=== PATIENT | female | born 1980 | race Caucasian/White ===

== ENCOUNTER 2023-05-04 03:17 | Outpatient (CLI) | payer MEDICAID, SELFPAY ==
[2023-05-04 13:00] LABS: Abs Immature Grans 0.02 10^3/uL (0.0-0.06); Absolute Basophil Count 0.05 10^3/uL (0.0-0.2); Absolute Eosinophil Count 0.23 10^3/uL (0.0-0.7); Absolute Monocyte Count 0.45 10^3/uL (0.1-0.8); Absolute Neutrophil Count 4.82 10^3/uL (1.2-6.7); Basophils % 0.7; Eosinophils % 3.2; HCT 38.7 % (36.0-46.0); Immature Grans % 0.3; Lymphocytes % 23.4; MCHC 33.6 % (32.0-36.0); MCV 86 fL (80-95); MPV 10.8 fL (8.0-11.0); Monocytes % 6.2; Neutrophils % 66.2; Platelet Count 215 10^3/uL (130-400); RBC 4.48 10^6/uL (3.93-5.22); RDW 12.1 % (11.7-14.6); RDW-SD 38.6 fL; WBC 7.27 10^3/uL (4.4-10.8)
[2023-05-04 13:36] LABS: Bilirubin Negative (Negative); Blood Negative (Negative); Clarity Clear (Clear); Glucose Negative (Negative); Ketones Negative (Negative); Leukocyte Esterase Negative (Negative); Nitrite Negative (Negative); Urobilinogen 0.2 mg/dL (Up to 0.2)
[2023-05-04 14:00] LABS: HCG Qual (Serum) Negative
[2023-05-04 14:18] LABS: ALT 33 U/L (14-59); AST 18 U/L (15-37); Alkaline Phosphatase 54 U/L (46-116); BUN 15 mg/dL (7-18); Bilirubin, Total 0.4 mg/dL (0.2-1.0); CREATININE 0.7 mg/dL (0.55-1.02); Calcium 8.8 mg/dL (8.5-10.1); Calculated LDL 117 mg/dL (<100); Chloride 103 mmol/L (98-107); Cholesterol 187 mg/dL (<200); Estimated GFR 109.98 (mL/min/1.73m2); Ferritin 28 ng/mL (8-252); Glucose 97 mg/dL (74-106); HDL Cholesterol 60 mg/dL (40-60); Potassium 3.9 mmol/L (3.5-5.1); Sodium 139 mmol/L (136-145); TSH 2.18 uIU/mL (0.36-3.74); Total Protein 7.8 g/dL (6.4-8.2); Triglyceride 53 mg/dL (<150)
[2023-05-04 15:36] LABS: FREE T4 0.87 ng/dL (0.76-1.46)
[2023-05-04 23:40] LABS: T3,Free 3.5 pg/mL (2.8-5.3)
[2023-05-05 08:22] LABS: FSH 4.7 mIU/mL (See Note); LH 4.2 mIU/mL (See Note); Prolactin 9.3 ng/mL (See Note); Sex Hormone Binding Globulin 38.7 nmol/L (See Note)
[2023-05-06 10:40] LABS: Insulin 9.4 uIU/mL (<29.0)
[2023-05-06 12:36] LABS: Copper, Serum 115 mcg/dL (77-206)
[2023-05-06 17:59] LABS: 25-Hydroxy D Total 35 ng/mL; 25-Hydroxy D2 <4.0 ng/mL; 25-Hydroxy D3 35 ng/mL
[2023-05-10 10:55] LABS: Testosterone, Free 0.42 ng/dL (<0.13-0.98); Testosterone, Total 24 ng/dL (8-60)
== END 2023-05-04 03:18 | disposition home or self-care (01) ==
LOC: LBO 03:17
PROVIDERS: PCP Naturopath; Visit Provider Naturopath
DX: K81.9 Cholecystitis, unspecified (principal); R42 Dizziness and giddiness; D50.9 Iron deficiency anemia, unspecified; E07.9 Disorder of thyroid, unspecified; E55.9 Vitamin D deficiency, unspecified; Z13.220 Encounter for screening for lipoid disorders; Z13.1 Encounter for screening for diabetes mellitus; E64.3 Sequelae of rickets; R35.0 Frequency of micturition; R53.83 Other fatigue; E61.0 Copper deficiency
CPT/HCPCS: 36415; 80053; 80061; 82306; 82525; 84402; 84403; 84410; 81003; 82728; 83001; 83002; 83525; 84146; 84270; 84439; 84443; 84481; 84703; 85025

== ENCOUNTER 2023-06-03 21:02 | Emergency (ER) | payer MEDICAID, SELFPAY ==
[2023-06-03 21:06] VITALS: BP 149/83; PULSE 64; RESP 16; TEMP 36.8; O2SAT 97
--- NOTE | 2023-06-03 21:40 | ED.GENADUL_ITS ---
Discharge Plan Disposition Patient Disposition: Home Condition: Good Discharge Details Clinical Impression: Laceration of hand Primary Care Provider: Derik Marcos ED Provider: Chin Ashton Home Meds and New Rx's Prescriptions: No Action No Known Home Meds Discharge Instructions Instructions: Laceration (ED) Additional Instructions: Suture removal in 7-10 days Discharge Data Discharge Date/Time-TO BE ENTERED AT DEPARTURE: 06/03/23 21:50 Medical Decision Making Simple laceration approximated with no complications. Suture removal in 7 to 10 days. HPI General Date/Time Provider Initiated Documentation: 06/03/23 21:40 . Limitations to Documentation: no limitations . Information obtained by: patient . HPI Narrative: Patient was byron fruit and and sustained a laceration to the left palm. This is because the glass broke. She irrigated the hand with fresh water. Presented to the emergency department. No other injuries. Complains of no numbness tingling distal to the site of injury. Bleeding was controlled with bandage. Related Data Home Medications Medication Instructions Recorded Confirmed Unknown [No Known Home Meds] 06/03/23 06/03/23 Allergies Allergy/AdvReac Type Severity Reaction Status Date / Time Penicillins AdvReac Unknown Other (See Unverified 06/03/23 21:09 Comment) General Stated Complaint: Laceration JEM: 4 Review of Systems Narrative: MUSC: Negative for muscle aches, edema. SKIN: Negative rash, lesions/sores. NEURO: Negative headache, dizziness, weakness. PFSH All Active Problems Laceration of hand (Acute) Social History Smoking/Tobacco Use Status: Never Smoking risk assessment performed?: Yes Alcohol Intake: never Housing: house Do you feel safe at home: Yes Do you feel safe in your relationship?: Yes Exam Narrative Exam Narrative: MUSCLES/EXTREMITIES No abnormal range of motion, no swelling. SKIN Warm, pink and dry. No rashes, dermatoses, petechiae or lesions. 1 cm linear clean laceration to the left palm. NEUROLOGICAL Speech is clear and appropriate. Normal level of consciousness. Gait and coordination are normal. 5/5 strength in all extremities. No sensory deficit Course Vital Signs Vital signs: Vital Signs Temperature 36.8 C 06/03/23 21:06 Pulse 64 06/03/23 21:06 Respiratory Rate 16 06/03/23 21:06 Blood Pressure 149/83 H 06/03/23 21:06 Pulse Oximetry 97 06/03/23 21:06 Temperature 36.8 C 06/03/23 21:06 Temperature Source Oral 06/03/23 21:06 Pulse 64 06/03/23 21:06 Respiratory Rate 16 06/03/23 21:06 Respiratory Effort Normal 06/03/23 21:10 Blood Pressure 149/83 H 06/03/23 21:06 Pulse Oximetry 97 06/03/23 21:06 Oxygen Delivery Method Room Air 06/03/23 21:06 Oxygen Flow Rate 0 06/03/23 21:06 Pain Level 4 06/03/23 21:06 Procedures Laceration Laceration 1: Site: other (Left palm) Size (cm): 1 Description: linear Depth: simple, single layer Local Anesthetic: Lidocaine 1% Amount of anesthesia used (mL): 3 Pre-repair: irrigated extensively and deep structures intact Skin layer closed with: nylon Size (cm): 5-0 Number of sutures: 2 Technique: simple, interrupted
== END 2023-06-03 21:50 | disposition home or self-care (01) ==
PROVIDERS: Emergency Provider Emergency Medicine; PCP Naturopath
DX: S61.412A Laceration without foreign body of left hand, initial encounter (principal); W26.8XXA Contact with other sharp object(s), not elsewhere classified, initial encounter
CPT/HCPCS: 12001

== ENCOUNTER 2023-07-02 00:46 | Outpatient (CLI) | payer MEDICAID, SELFPAY ==
--- NOTE | 2023-07-02 | DI.US_ITS ---
Exam(s) US BREAST LT COMPLETE US BREAST RT COMPLETE MG MAMMO DIAGNOSTIC BI EXAM: MG MAMMO DIAGNOSTIC BI AND BILATERAL COMPLETE BREAST ULTRASOUND CLINICAL HISTORY: N64.3 GALACTORRHEA NOT ASSOCIATED WITH CHILDBIRTH, FAMILY HX, Z80.3. TECHNIQUE: Both CC and MLO mammographic images were obtained with 3D tomosynthesis technique and uti lizing computer aided detection (CAD). We also performed spot compression mammographic views of both breasts. COMPLETE BILATERAL BREAST ULTRASOUND was performed including all 4 quadrants of both breasts, the ret roareolar regions, as well as both axillary regions. COMPARISON: None. This is a baseline mammogram on the this 42-year-old patient who has been having occasional unilateral right breast non bloody discharge. FINDINGS: MAMMOGRAM: In the left breast on the MLO view there is an asymmetric density-possible nodule located 7 cm in fro m the nipple. We performed additional spot compression view and this appears to dissipate this nodul e. This was also negative for significant findings on ultrasound today. There are no malignant-appe aring microcalcification groups in the left breast. No architectural distortion or skin thickening-t raction. In the right breast there are some asymmetric densities retroareolar region. Spot compression view r eveals these to be ducts which appear to be upper normal diameters. There is no truly discernible ma ss and there are no malignant-appearing microcalcification groups. No significant architectural dist ortion or skin thickening-traction. BILATERAL COMPLETE BREAST ULTRASOUND: LEFT BREAST ULTRASOUND: No evidence of solid or significant cystic lesions in all 4 quadrants. Norm al size retroareolar region ducts which are similar in size to the opposite-right side and do not con tain masses nor inspissated material. Scanning of the left axilla is negative for significant adenopathy. RIGHT BREAST ULTRASOUND: No evidence of solid nor significant cystic lesions in all 4 quadrants. In the retroareolar region there are normal size ducts which appears symmetrical when compared to the op posite-left side. There is no mass such as papilloma within the ducts in the ducts appear clear with no inspissated material therein. Scanning of the right axilla is negative for significant adenopathy. IMPRESSION: 1. No radiographic evidence of malignancy. 2. Negative bilateral complete breast ultrasound. Appropriate follow-up is repeat bilateral mammogram in 6 months, with earlier imaging if a self detec connie breast change is noted.. The patient was informed of the findings and follow-up recommendations by myself prior to leaving the department today. BI-RADS Category 3 - 6 month - Probably Benign Finding: Recommend follow-up mammography in 6 months Breast Density - Category B - Scattered areas of fibroglandular density Breast density Category C or D implies that the patient has dense breast tissue. Dense breast tissue can make it harder to find cancer on a mammogram. Dense breast tissue is also associated with an incr eased risk of breast cancer. This information about the result of the mammogram report was provided to the patient to raise their awareness. Use this report when you speak with the patient about their risks for breast cancer, which includes their family history. At that time, you may recommend additional screening tests (Ultrasoun d or MRI) as these tests may add significant information. A negative radiographic report should not delay biopsy if a dominant or clinically suspicious mass is present. Up to ten percent of cancers are not identified on mammography. A negative report may reinforce clinical impression. Adenosis and dense breasts may obscure an underlying neoplasm. False positive reports average 6 to 10%. Patient will receive a letter notifying them of these results.
== END 2023-07-02 01:06 ==
LOC: DI 00:46
PROVIDERS: PCP Naturopath; Visit Provider Naturopath
DX: Z12.31 Encounter for screening mammogram for malignant neoplasm of breast (principal); Z80.3 Family history of malignant neoplasm of breast; N64.3 Galactorrhea not associated with childbirth
CPT/HCPCS: 76642; 77062; 77066; G0279

== ENCOUNTER 2023-08-16 21:18 | Outpatient (REF) | payer MEDICAID, SELFPAY ==
--- NOTE | 2023-08-16 10:00 | PAPFT_PTH ---
PATIENT: Aria Willis LOC: [facility] U#:[id number] AGE/SX: 42/F ROOM: RE08/16/[address]: Derik Marcos : 1980 BED: DIS: 08/16/2023 SPEC #: [id number] RECD: 08/17/23 12:48 STATUS: TREVA REKarli #: [id number] EVIN: 08/16/23 10:[address]: Derik Marcos DEPT: [facility] Cytology RECD BY: Magda Frye Tissues: 1 - CX/ENDOCX FOR PAP SMEARS Procedures: PAP THIN PREP/UVM Screening HPV DNA PROBE Comments: [id number] (CHLAMYDIA/GC)
[2023-08-18 15:40] LABS: Chlamydia Result Negative (Negative); GC Result Negative (Negative)
== END 2023-08-16 21:19 | disposition home or self-care (01) ==
LOC: LBN 21:18
PROVIDERS: PCP Naturopath; Visit Provider Naturopath
DX: N95.2 Postmenopausal atrophic vaginitis (principal); Z11.3 Encounter for screening for infections with a predominantly sexual mode of transmission; Z12.4 Encounter for screening for malignant neoplasm of cervix; Z11.51 Encounter for screening for human papillomavirus (HPV)
CPT/HCPCS: 87491; 87591; 88142; 87480; 87510; 87624; 87660

== ENCOUNTER → 2023-12-30 01:41 | Outpatient (CLI) | payer MEDICAID, SELFPAY ==
--- NOTE | 2023-12-30 13:17 | DI.MAMMO_ITS ---
Exam(s) MAMMO DIAGNOSTIC BI EXAM: MAMMO DIAGNOSTIC BI CLINICAL HISTORY: DIAGNOSTIC, 6 MO F/U, R92.8,R92.2. TECHNIQUE: Bilateral CC and MLO mammographic images were obtained with 3D tomosynthesis technique an kelsie utilizing computer aided detection (CAD). COMPARISON: Prior diagnostic baseline mammogram of June 2023. Ultrasound performed at that time w as also reviewed. FINDINGS: There presently no CAD designations in either breast. Previously described finding in the left breast on the MLO view is actually less evident on the prese nt mammogram, further evidence that it was benign. Also no new significant mammographic findings in the right breast. There are no malignant-appearing microcalcification groups. There is no new architectural distortion or skin thickening-traction. IMPRESSION: No radiographic evidence of malignancy However, the patient informs me that she still has nonbloody greenish right nipple discharge. This r equire sampling for cytology and microbiology. Either to be performed by primary care physician or b y referral to breast surgeon. The patient was informed of the findings and follow-up recommendations by myself prior to leaving the department today. BI-RADS Category 2 - Benign mammographic findingsbut with recommendations as above Breast Density - Category B - Scattered areas of fibroglandular density Breast density Category C or D implies that the patient has dense breast tissue. Dense breast tissue can make it harder to find cancer on a mammogram. Dense breast tissue is also associated with an incr eased risk of breast cancer. This information about the result of the mammogram report was provided to the patient to raise their awareness. Use this report when you speak with the patient about their risks for breast cancer, which includes their family history. At that time, you may recommend additional screening tests (Ultrasoun d or MRI) as these tests may add significant information. A negative radiographic report should not delay biopsy if a dominant or clinically suspicious mass is present. Up to ten percent of cancers are not identified on mammography. A negative report may reinforce clinical impression. Adenosis and dense breasts may obscure an underlying neoplasm. False positive reports average 6 to 10%. Patient will receive a letter notifying them of these results.
== END ==
PROVIDERS: PCP Naturopath; Visit Provider Naturopath
DX: Z12.31 Encounter for screening mammogram for malignant neoplasm of breast (principal); R92.8 Other abnormal and inconclusive findings on diagnostic imaging of breast
CPT/HCPCS: 77062; 77066; G0279

== ENCOUNTER 2025-01-18 13:41 | Outpatient (CLI) | payer OTHER, SELFPAY ==
--- NOTE | 2025-01-18 14:19 | DI.RAD_ITS ---
Exam(s) XR CHEST 2V PA LATERAL EXAM: XR CHEST 2V PA LATERAL CLINICAL HISTORY: J06.9 Acute upper respiratory infection TECHNIQUE: 2D digital imaging was performed of the chest. Two images were obtained. PA and lateral views were obtained. COMPARISON: No exams were available for comparison FINDINGS: MEDIASTINUM: Normal. HEART: Normal. PULMONARY VASCULATURE: Normal. LUNGS: Clear. PLEURAL SPACE: No pleural effusion or pneumothorax. BONE:Within normal limits for the patient's age. OTHER FINDINGS:Normal. IMPRESSION: No acute pulmonary findings. DATA REPOSITORY: RADIATION DOSE DELIVERED:
== END 2025-01-18 14:01 ==
PROVIDERS: PCP Naturopath; Visit Provider Physician Assistant Medical
DX: J06.9 Acute upper respiratory infection, unspecified (principal)
CPT/HCPCS: 71046

== ENCOUNTER 2025-01-18 22:53 | Outpatient (REF) | payer OTHER, SELFPAY ==
[2025-01-18 23:42] LABS: COVID-19 PCR Negative (Negative); Influenza A PCR Negative (Negative); Influenza B PCR Negative (Negative); RSV PCR Negative (Negative)
[2025-01-18 23:47] LABS: Source Nasopharynx
== END 2025-01-18 22:54 | disposition home or self-care (01) ==
LOC: LBN 22:53
PROVIDERS: PCP Naturopath; Visit Provider Physician Assistant Medical
DX: J06.9 Acute upper respiratory infection, unspecified (principal)
CPT/HCPCS: 87637; 87070